=== PATIENT | female | born 1970 | race Caucasian/White ===

== ENCOUNTER 2024-11-04 16:15 | Emergency (ER) | payer OTHER, SELFPAY ==
[2024-11-04] VITALS (12 sets, daily range): BP systolic 115–158; BP diastolic 65–97; PULSE 85–130; TEMP 36.7; O2SAT 96–100; BMI 23.4
--- NOTE | 2024-11-04 16:47 | XR_ITS ---
[facility] [place] [id number] Patient Name: ELISE KHAN MRN: [id number] date: 1970 Sex: F Assigned Patient Location: ER Current Patient Location: ER Accession/Order Number: [id number] Exam Date: 11/04/2024 17:30 Report Date: 11/04/2024 18:49 At the request of: ELIEL VARELA Procedure: XR chest 1V EXAM: XR chest 1V TECHNIQUE: Single AP view chest HISTORY: chest pain COMPARISON: None. FINDINGS: The heart is enlarged. Pulmonary venous congestion. Osseous structures are intact. XR/XR chest 1V IMPRESSION: Pulmonary venous congestion suggesting CHF and/or fluid overload. Electronically authenticated by: LUPE KINSEY Date: 11/04/2024 18:49
--- NOTE | 2024-11-04 16:47 | ECG_ITS ---
The [facility] Test Date: 2024-11-04 Pat Name: ELISE KHAN Department: Room: - Gender: Female [employer]: : 1970 Requested By: Order Number: [id number] Reading MD: NICHOLAS YAO Measurements Intervals [place] Rate: 101 P: -[id number] ME: -[id number] QRS: 74 QRSD: 78 T: 78 QT: 318 QTc: 376 Interpretive Statements [id number] Atrial fibrillation with rapid ventricular response [id number] abnormal rhythm ECG No previous ECG available for comparison Electronically Signed On 11-04-2024 18:04:47 EST by NICHOLAS YAO
--- NOTE | 2024-11-04 17:00 | ED.CHESTPAI1 ---
HPI - Chest Pain General Chief Complaint: Chest Pain Stated Complaint: CHEST PAINS Time Seen by Provider: 11/04/24 16:47 Source: patient and family Mode of arrival: Wheelchair Limitations: no limitations History of Present Illness HPI narrative: Patient have history of A-fib coming to the ER with a right-sided chest pain that started within the last 24 hours, pain is right-sided and retrosternal, associated with taking deep breath and movement The patient also mentioned having some runny nose and cough that is productive of mucus The patient mention also that she have noticed some blood in her urine Related Data Allergies Allergy/AdvReac Type Severity Reaction Status Date / Time No Known Drug Allergies Allergy Verified 11/04/24 16:35 Review of Systems ROS Status of ROS 10 or more systems reviewed and unremarkable except as noted in history and below PFSH PFSH Social History Little interest or pleasure in doing things: not at all Feeling down, depressed, or hopeless: not at all Exam Narrative Exam Narrative: Nurses notes and vital signs reviewed and patient is not hypoxic. General: Well-appearing and in no apparent distress. Skin: Warm, dry, no pallor noted. No rash. Head: Normocephalic, atraumatic. Neck: Supple, non-tender. Eye: Pupils are equal, round and EOMI. No scleral icterus. Ears, Nose, Mouth, and Throat: TM are clear, no nasal mucosal hypertrophy. Oral mucosa is moist, no posterior oropharynx erythema, uvula is mid-line Cardiovascular: Regular Rate and Rhythm without murmur, gallop or rub. Respiratory: No accessory muscle use or respiratory distress. Lungs are clear to auscultation, no wheezing, rales or rhonchi Chest Wall: no tenderness Back: No midline thoracic or lumbar vertebral tenderness. No CVA tenderness Musculoskeletal: normal ROM, no calf or popliteal tenderness, no lower extremity edema/swelling GI: Abdomen is soft, non-distended. Normal bowel sounds. No masses appreciated. No tenderness to palpation. No rebound, guarding, or rigidity noted. Neurological: A&O x4. No cranial nerve dysfunction observed. No truncal ataxia. Moves all extremities. Sensation intact. Psychiatric: Cooperative and interactive. Normal mood and affect. Constitutional Vital Signs, click to edit/add: Last Vital Signs Temp 98.1 F 11/04/24 16:35 Pulse 111 H 11/04/24 16:35 Resp 20 11/04/24 16:35 BP 141/81 11/04/24 16:35 Pulse Ox 99 11/04/24 16:35 O2 Del Method Room Air 11/04/24 16:35 Course Vital Signs Vital signs: Vital Signs Temperature 98.1 F 11/04/24 16:35 Pulse Rate 111 H 11/04/24 16:35 Respiratory Rate 20 11/04/24 16:35 Blood Pressure 141/81 11/04/24 16:35 Pulse Oximetry 99 11/04/24 16:35 Oxygen Delivery Method Room Air 11/04/24 16:35 Temperature 98.1 F 11/04/24 16:35 Pulse Rate 111 H 11/04/24 16:35 Respiratory Rate 20 11/04/24 16:35 Blood Pressure 141/81 11/04/24 16:35 Pulse Oximetry 99 11/04/24 16:35 Oxygen Delivery Method Room Air 11/04/24 16:35 MDM - Chest Pain MDM Narrative Medical decision making narrative: The patient is showing A-fib with a heart rate of [address] elevation or depression the patient have a history of A-fib The patient CBC showing no acute pathology but does show some mild leukopenia which could be secondary to viral illness The chemistry was within normal COVID and flu test are pending The patient D-dimer is elevated and there is a concern with the patient tachycardia and chest pain that could be secondary to a PE as well Urinalysis showed no UTI Patient was complaining of severe pain that not correlating with possible pleuritic pain and she was tachycardic Lab Data Labs: Lab Results 11/04/24 11/04/24 Range/Units 16:53 17:26 WBC 3.5 L (4.0-11.0) 10^3/uL RBC 4.28 (4.20-5.40) 10^6/uL Hgb 12.1 (12.0-16.0) g/dL Hct 37.0 (36.0-48.0) % MCV 86.4 (81.0-99.0) fL MCH 28.3 (26.7-34.0) pg MCHC 32.7 (29.9-35.2) g/dL RDW 12.3 (11.0-15.0) % Plt Count 212 (150-450) 10^3/uL MPV 9.8 (9.5-13.5) fL Neut % (Auto) 64.8 (43.0-75.0) % Lymph % (Auto) 23.8 (20.5-60.0) % [place] % (Auto) 7.4 (1.7-12.0) % Eos % (Auto) 3.7 (0.9-7.0) % Baso % (Auto) 0.3 (0.2-2.0) % Neut # (Auto) 2.3 (1.4-6.5) 10^3/uL Lymph # (Auto) 0.8 L (1.2-3.8) 10^3/uL [place] # (Auto) 0.3 (0.3-0.8) 10^3/uL Eos # (Auto) 0.1 (0.0-0.7) 10^3/uL Baso # (Auto) 0.0 (0.0-0.1) 10^3/uL Abs Immat Gran (auto) 0.00 (0.00-0.03) 10^3/uL Imm/Tot Granulo (auto) 0.0 (0.0-0.5) % D-Dimer 0.76 H* (<=0.59) mg/L FEU Sodium 139 (136-145) mmol/L Potassium 3.5 (3.5-5.1) mmol/L Chloride 104 (98-107) mmol/L Carbon Dioxide 29.1 (21.0-32.0) mmol/L Anion Gap 9.4 BUN 12.0 (7.0-18.0) mg/dL Creatinine 0.57 (0.55-1.02) mg/dL Est GFR ( Amer) >60 (>=60 mL/min/1.73m^2) Est GFR (Non-Af Amer) >60 (>=60 mL/min/1.73m^2) BUN/Creatinine Ratio 21.1 Glucose 130 H (74-106) mg/dL Calcium 8.7 (8.5-10.1) mg/dL Total Bilirubin 0.6 (0.2-1.0) mg/dL AST 17 (15-37) U/L ALT 20 (14-59) U/L Alkaline Phosphatase 225 H (46-116) U/L Troponin I High Sens 7.6 (4.0-51.3) pg/mL Total Protein 7.4 (6.4-8.2) g/dL Albumin 3.2 L (3.4-5.0) g/dL Globulin 4.2 g/dL Albumin/Globulin Ratio 0.8 Urine Color Lt. yellow (YELLOW) Urine Clarity Clear (CLEAR) Urine pH 6.0 (5.0-9.0) Ur Specific [place] 1.025 (1.005-1.025) Urine Protein Negative (NEG/TRACE) mg/dL Urine Glucose (UA) Negative (NEGATIVE) mg/dL Urine Ketones Negative (NEGATIVE) mg/dL Urine Occult Blood Large A (NEGATIVE) Urine Nitrite Negative (NEGATIVE) Urine Bilirubin Negative (NEGATIVE) Urine Urobilinogen 0.2 (0.2-1.0) EU/dL Ur Leukocyte Esterase Trace A (NEGATIVE) Urine RBC 20-50 A (0-2) #/HPF Urine WBC None seen (NONE SEEN) #/HPF Ur Squamous Epith Cells Few A (NONE/RARE) #/LPF Ur Transition Epith Cell Few A (NONE SEEN) #/LPF Urine Crystals None seen (None Seen) #/HPF Urine Bacteria Trace A (NONE SEEN) #/HPF Urine Casts None seen (NONE SEEN) #/LPF Urine Mucus None seen (NONE SEEN) Ur Culture Indicated? No Discharge Plan Discharge Chief Complaint: Chest Pain Clinical Impression: Chest pain Print Language: Tamazight Referrals: Physician,Non-Staff, [Primary Care Provider] - 1 week
[2024-11-04 17:10] LABS: Basophils Percent Auto 0.3 % (0.2-2.0); Eosinophils Absolute Auto 0.1 10^3/uL (0.0-0.7); Eosinophils Percent Auto 3.7 % (0.9-7.0); Hemoglobin 12.1 g/dL (12.0-16.0); Lymphocytes Absolute Auto 0.8 10^3/uL (1.2-3.8); Lymphocytes Percent Auto 23.8 % (20.5-60.0); Mean Corpuscular HGB Conc 32.7 g/dL (29.9-35.2); Mean Corpuscular Hemoglobin 28.3 pg (26.7-34.0); Mean Corpuscular Volume 86.4 fL (81.0-99.0); Mean Platelet Volume 9.8 fL (9.5-13.5); Monocytes Absolute Auto 0.3 10^3/uL (0.3-0.8); Monocytes Percent Auto 7.4 % (1.7-12.0); Neutrophils Absolute Auto 2.3 10^3/uL (1.4-6.5); Neutrophils Percent Auto 64.8 % (43.0-75.0); Red Blood Count 4.28 10^6/uL (4.20-5.40); Red Cell Distribution Width 12.3 % (11.0-15.0); White Blood Count 3.5 10^3/uL (4.0-11.0)
[2024-11-04] MEDS: KETOROLAC TROMETHAMINE 30 MG/ML VIAL 15 MG IVP (17:20)
[2024-11-04 17:27] LABS: Alanine Aminotransferase 20 U/L (14-59); Albumin Globulin Ratio 0.8; Albumin Level 3.2 g/dL (3.4-5.0); Alkaline Phosphatase 225 U/L (46-116); Anion Gap 9.4; Aspartate Amino Transferase 17 U/L (15-37); BUN Creatinine Ratio 21.1; Bilirubin Total 0.6 mg/dL (0.2-1.0); Calcium 8.7 mg/dL (8.5-10.1); Carbon Dioxide 29.1 mmol/L (21.0-32.0); Chloride 104 mmol/L (98-107); Estimated GFR (African America >60 (>=60 mL/min/1.73m^2); Estimated GFR (Non-African Ame >60 (>=60 mL/min/1.73m^2); Globulin 4.2 g/dL; Glucose 130 mg/dL (74-106); Potassium 3.5 mmol/L (3.5-5.1); Sodium 139 mmol/L (136-145); Total Protein 7.4 g/dL (6.4-8.2); Troponin I High Sensitivity 7.6 pg/mL (4.0-51.3)
[2024-11-04 17:33] LABS: D Dimer 0.76 mg/L FEU (<=0.59)
[2024-11-04 17:35] LABS: Platelet Count 212 10^3/uL (150-450)
[2024-11-04 17:38] LABS: Bilirubin Urine NEGATIVE (NEGATIVE); Blood Urine LARGE (NEGATIVE); Clarity Urine CLEAR (CLEAR); Color Urine LT. YELLOW (YELLOW); Glucose Urine UA NEGATIVE (NEGATIVE); Ketones Urine NEGATIVE (NEGATIVE); Leukocyte Esterase Urine TRACE (NEGATIVE); Nitrite Urine NEGATIVE (NEGATIVE); Protein Urine NEGATIVE (NEG/TRACE); Specific Gravity Urine 1.025 (1.005-1.025); Urobilinogen Urine 0.2 EU/dL (0.2-1.0)
[2024-11-04 17:41] LABS: Urine Microscopic Indicated YES
[2024-11-04 17:52] LABS: Bacteria Urine TRACE #/HPF (NONE SEEN); Mucus Urine NONE SEEN (NONE SEEN); RBC Urine 20-50 #/HPF (0-2); Squamous Epithelial Cell Urine FEW #/LPF (NONE/RARE); WBC Urine NONE SEEN #/HPF (NONE SEEN)
[2024-11-04 17:53] LABS: Cast Seen? NONE SEEN #/LPF (NONE SEEN); Crystals Seen? None Seen #/HPF (None Seen); Transitional Epi Cells Urine FEW #/LPF (NONE SEEN); Urine Culture Indicated NO
--- NOTE | 2024-11-04 18:20 | CT_ITS ---
The [address] [address] Patient Name: ELISE KHAN MRN: [id number] date: 1970 Sex: F Assigned Patient Location: ER Current Patient Location: .MAIN Accession/Order Number: [id number] Exam Date: 11/04/2024 18:40 Report Date: 11/04/2024 20:28 At the request of: ELIEL VARELA Procedure: CT angio chest EXAM: CT angio chest HISTORY: chest pain tachycardic elevated dimer COMPARISON: None. TECHNIQUE: CT angiography of the chest was performed without IV contrast followed by IV contrast, including 3D post processing CTA image reconstruction. CT dose reduction technique was used, including Automated Exposure Control. FINDINGS: Diagnostic quality: Adequate There is no evidence for pulmonary embolism. The heart is at least mildly enlarged. There is no pericardial effusion. There is mild mediastinal lymphadenopathy, which may be reactive, for example in the precarinal region is a lymph node measuring 14 mm. Coronary arteries: Mild coronary calcifications. The central tracheobronchial tree is clear. Scattered, multifocal small nodular densities are seen, with an upper and mid lung predominance, for example in the right upper lobe on axial image 26, is an index nodule measuring 8 mm. There are also numerous punctate nodules. Mild interlobular septal thickening seen throughout suggesting interstitial pulmonary edema. No acute process identified in the visualized upper abdomen. No destructive osseous changes are seen. CT/CT angio chest IMPRESSION: No CT findings to suggest pulmonary embolism. Multifocal nodular densities throughout the lungs are seen, and are favored infectious, over a neoplastic process, in the absence of a known primary malignancy. There is interstitial pulmonary edema. Cardiomegaly. Electronically authenticated by: TAM VICTOR Date: 11/04/2024 20:28
[2024-11-04 18:39] LABS: Influenza Virus A Antigen Negative; Influenza Virus B Antigen Negative; Internal Control Within Normal Limits; SARS-CoV-2 Ag NEGATIVE (NEGATIVE)
[2024-11-04] MEDS: MORPHINE SULFATE 4 MG/ML VIAL IV (19:57)
[2024-11-04 20:28] LABS: Troponin I High Sensitivity 9.3 pg/mL (4.0-51.3)
--- NOTE | 2024-11-04 20:42 | ED.GENADUL1 ---
HPI HPI - General Adult General Chief complaint: Chest Pain Stated complaint: CHEST PAINS Time Seen by Provider: 11/04/24 16:47 Source: patient and family Mode of arrival: Wheelchair Limitations: no limitations History of Present Illness HPI narrative: 54-year-old female presented to the emergency department and was initially seen by Dr. Burrell and signed out to me after discussing the case with her thoroughly. Please see her full history and physical exam. Related Data Previous Rx's ?Medication ?Instructions ?Recorded azithromycin 250 mg tablet See Rx Instructions PO .COMPLEX #6 11/04/24 (Zithromax Z-Scout) tabs Allergies Allergy/AdvReac Type Severity Reaction Status Date / Time No Known Drug Allergies Allergy Verified 11/04/24 16:35 Opioid HPI Opioid Management Most Recent Opioid Data: Last Pain Scale 8 11/04/24 20:00 11/04/24 Last ED Pain Assessment 11/04/24 20:00 PFSH PFSH Social History Little interest or pleasure in doing things: not at all Feeling down, depressed, or hopeless: not at all Exam Constitutional Vital Signs, click to edit/add: Last Vital Signs Temp 98.1 F 11/04/24 16:35 Pulse 114 H 11/04/24 20:03 Resp 30 H 11/04/24 20:03 BP 115/65 11/04/24 20:03 Pulse Ox 98 11/04/24 20:03 O2 Del Method Room Air 11/04/24 16:35 Course Vital Signs Vital signs: Vital Signs Temperature 98.1 F 11/04/24 16:35 Pulse Rate 111 H 11/04/24 16:35 Respiratory Rate 20 11/04/24 16:35 Blood Pressure 141/81 11/04/24 16:35 Pulse Oximetry 99 11/04/24 16:35 Oxygen Delivery Method Room Air 11/04/24 16:35 Temperature 98.1 F 11/04/24 16:35 Pulse Rate 114 H 11/04/24 20:03 Respiratory Rate 30 H 11/04/24 20:03 Blood Pressure 115/65 11/04/24 20:03 Pulse Oximetry 98 11/04/24 20:03 Oxygen Delivery Method Room Air 11/04/24 16:35 Medical Decision Making MDM Narrative Medical decision making narrative: CTA was performed and does not show pulmonary embolism. Pneumonia is suggested by the radiologist. Microscopic hematuria is also identified and the patient has known about this for about a month. She has not yet sought medical care for it and is referred to urology. She is prescribed Zithromax for the pneumonia. The importance of follow-up with the PCP was discussed thoroughly with her to ensure that the areas on her lung clear. She was given a list of PCPs. Treatment diagnosis and follow-up were discussed thoroughly. 2 sets of troponin are negative. Differential Diagnosis Differential Diagnosis: COVID, influenza, pneumonia, PE, acute coronary syndrome Lab Data Lab results reviewed: Yes I reviewed the patient's lab results Labs: Lab Results 11/04/24 11/04/24 11/04/24 Range/Units 16:53 17:26 18:23 WBC 3.5 L (4.0-11.0) 10^3/uL RBC 4.28 (4.20-5.40) 10^6/uL Hgb 12.1 (12.0-16.0) g/dL Hct 37.0 (36.0-48.0) % MCV 86.4 (81.0-99.0) fL MCH 28.3 (26.7-34.0) pg MCHC 32.7 (29.9-35.2) g/dL RDW 12.3 (11.0-15.0) % Plt Count 212 (150-450) 10^3/uL MPV 9.8 (9.5-13.5) fL Neut % (Auto) 64.8 (43.0-75.0) % Lymph % (Auto) 23.8 (20.5-60.0) % [place] % (Auto) 7.4 (1.7-12.0) % Eos % (Auto) 3.7 (0.9-7.0) % Baso % (Auto) 0.3 (0.2-2.0) % Neut # (Auto) 2.3 (1.4-6.5) 10^3/uL Lymph # (Auto) 0.8 L (1.2-3.8) 10^3/uL [place] # (Auto) 0.3 (0.3-0.8) 10^3/uL Eos # (Auto) 0.1 (0.0-0.7) 10^3/uL Baso # (Auto) 0.0 (0.0-0.1) 10^3/uL Abs Immat Gran (auto) 0.00 (0.00-0.03) 10^3/uL Imm/Tot Granulo (auto) 0.0 (0.0-0.5) % D-Dimer 0.76 H* (<=0.59) mg/L FEU Sodium 139 (136-145) mmol/L Potassium 3.5 (3.5-5.1) mmol/L Chloride 104 (98-107) mmol/L Carbon Dioxide 29.1 (21.0-32.0) mmol/L Anion Gap 9.4 BUN 12.0 (7.0-18.0) mg/dL Creatinine 0.57 (0.55-1.02) mg/dL Est GFR ( Amer) >60 (>=60 mL/min/1.73m^2) Est GFR (Non-Af Amer) >60 (>=60 mL/min/1.73m^2) BUN/Creatinine Ratio 21.1 Glucose 130 H (74-106) mg/dL Calcium 8.7 (8.5-10.1) mg/dL Total Bilirubin 0.6 (0.2-1.0) mg/dL AST 17 (15-37) U/L ALT 20 (14-59) U/L Alkaline Phosphatase 225 H (46-116) U/L Troponin I High Sens 7.6 (4.0-51.3) pg/mL NT-Pro-B Natriuret Pep (<=900.0) pg/mL Total Protein 7.4 (6.4-8.2) g/dL Albumin 3.2 L (3.4-5.0) g/dL Globulin 4.2 g/dL Albumin/Globulin Ratio 0.8 Urine Color Lt. yellow (YELLOW) Urine Clarity Clear (CLEAR) Urine pH 6.0 (5.0-9.0) Ur Specific [place] 1.025 (1.005-1.025) Urine Protein Negative (NEG/TRACE) mg/dL Urine Glucose (UA) Negative (NEGATIVE) mg/dL Urine Ketones Negative (NEGATIVE) mg/dL Urine Occult Blood Large A (NEGATIVE) Urine Nitrite Negative (NEGATIVE) Urine Bilirubin Negative (NEGATIVE) Urine Urobilinogen 0.2 (0.2-1.0) EU/dL Ur Leukocyte Esterase Trace A (NEGATIVE) Urine RBC 20-50 A (0-2) #/HPF Urine WBC None seen (NONE SEEN) #/HPF Ur Squamous Epith Cells Few A (NONE/RARE) #/LPF Ur Transition Epith Cell Few A (NONE SEEN) #/LPF Urine Crystals None seen (None Seen) #/HPF Urine Bacteria Trace A (NONE SEEN) #/HPF Urine Casts None seen (NONE SEEN) #/LPF Urine Mucus None seen (NONE SEEN) Ur Culture Indicated? No Influenza Type A Ag Negative Influenza Type B Ag Negative SARS-CoV-2 Ag (CV2AG) Negative (NEGATIVE) 11/04/24 Range/Units 20:04 WBC (4.0-11.0) 10^3/uL RBC (4.20-5.40) 10^6/uL Hgb (12.0-16.0) g/dL Hct (36.0-48.0) % MCV (81.0-99.0) fL MCH (26.7-34.0) pg MCHC (29.9-35.2) g/dL RDW (11.0-15.0) % Plt Count (150-450) 10^3/uL MPV (9.5-13.5) fL Neut % (Auto) (43.0-75.0) % Lymph % (Auto) (20.5-60.0) % [place] % (Auto) (1.7-12.0) % Eos % (Auto) (0.9-7.0) % Baso % (Auto) (0.2-2.0) % Neut # (Auto) (1.4-6.5) 10^3/uL Lymph # (Auto) (1.2-3.8) 10^3/uL [place] # (Auto) (0.3-0.8) 10^3/uL Eos # (Auto) (0.0-0.7) 10^3/uL Baso # (Auto) (0.0-0.1) 10^3/uL Abs Immat Gran (auto) (0.00-0.03) 10^3/uL Imm/Tot Granulo (auto) (0.0-0.5) % D-Dimer (<=0.59) mg/L FEU Sodium (136-145) mmol/L Potassium (3.5-5.1) mmol/L Chloride (98-107) mmol/L Carbon Dioxide (21.0-32.0) mmol/L Anion Gap BUN (7.0-18.0) mg/dL Creatinine (0.55-1.02) mg/dL Est GFR ( Amer) (>=60 mL/min/1.73m^2) Est GFR (Non-Af Amer) (>=60 mL/min/1.73m^2) BUN/Creatinine Ratio Glucose (74-106) mg/dL Calcium (8.5-10.1) mg/dL Total Bilirubin (0.2-1.0) mg/dL AST (15-37) U/L ALT (14-59) U/L Alkaline Phosphatase (46-116) U/L Troponin I High Sens 9.3 (4.0-51.3) pg/mL NT-Pro-B Natriuret Pep 2068.0 H* (<=900.0) pg/mL Total Protein (6.4-8.2) g/dL Albumin (3.4-5.0) g/dL Globulin g/dL Albumin/Globulin Ratio Urine Color (YELLOW) Urine Clarity (CLEAR) Urine pH (5.0-9.0) Ur Specific [place] (1.005-1.025) Urine Protein (NEG/TRACE) mg/dL Urine Glucose (UA) (NEGATIVE) mg/dL Urine Ketones (NEGATIVE) mg/dL Urine Occult Blood (NEGATIVE) Urine Nitrite (NEGATIVE) Urine Bilirubin (NEGATIVE) Urine Urobilinogen (0.2-1.0) EU/dL Ur Leukocyte Esterase (NEGATIVE) Urine RBC (0-2) #/HPF Urine WBC (NONE SEEN) #/HPF Ur Squamous Epith Cells (NONE/RARE) #/LPF Ur Transition Epith Cell (NONE SEEN) #/LPF Urine Crystals (None Seen) #/HPF Urine Bacteria (NONE SEEN) #/HPF Urine Casts (NONE SEEN) #/LPF Urine Mucus (NONE SEEN) Ur Culture Indicated? Influenza Type A Ag Influenza Type B Ag SARS-CoV-2 Ag (CV2AG) (NEGATIVE) Imaging Data Chest x-ray: Radiologist's impression: ITS Impressions Chest X-Ray 01/23/25 16:47 IMPRESSION: Pulmonary venous congestion suggesting CHF and/or fluid overload. Electronically authenticated by: LUPE KINSEY Date: 11/04/2024 18:49 Chest CTA 11/04/24 18:20 IMPRESSION: No CT findings to suggest pulmonary embolism. Multifocal nodular densities throughout the lungs are seen, and are favored infectious, over a neoplastic process, in the absence of a known primary malignancy. There is interstitial pulmonary edema. Cardiomegaly. Electronically authenticated by: TAM VICTOR Date: 11/04/2024 20:28 Discharge Plan Discharge Chief Complaint: Chest Pain Clinical Impression: Chest pain, Pneumonia, Asymptomatic microscopic hematuria Patient Disposition: Home, Self-Care Time of Disposition Decision: 20:41 Condition: Good Mode of Transportation: Private Vehicle Prescriptions / Home Meds: New azithromycin [Zithromax Z-Scout] 250 mg tablet See Rx Instructions .ROUTE .COMPLEX Qty: 6 0RF Rx Instructions: For 250 mg dose pack: take 500 mg today (day 1), then 250 mg for 4 days (days 2-5) Print Language: Jamaican Instructions: Hematuria (ED), Pneumonia (ED) Additional Instructions: See attached a list of primary care physicians Referrals: Physician,Non-Staff, [Primary Care Provider] - 1 week Elmo Rojas MD [Physician] - 1 week
== END 2024-11-04 21:28 | disposition home or self-care (01) ==
PROVIDERS: Emergency Medicine; Emergency Provider Emergency Medicine
DX: J18.9 Pneumonia, unspecified organism (principal); R07.9 Chest pain, unspecified; R31.21 Asymptomatic microscopic hematuria; I48.91 Unspecified atrial fibrillation; R79.89 Other specified abnormal findings of blood chemistry
CPT/HCPCS: 36415; 71045; 71275; 80053; 81001; 83880; 84484; 85025; 85378; 87086; 87804; 87811; 93005; 96374; 96375; 99285; J1885; J2270